=== PATIENT | male | born 1950 | race Caucasian/White ===

== ENCOUNTER 2017-12-09 14:28 | Observation (INO) | payer MEDICARE, BC ==
[2017-12-09] MEDS ORDERED: Sodium Chloride 0.9% 1,000 ML IV SCH (14:45)
[2017-12-09] MEDS ORDERED: cefTRIAXone 1 GM Vial IVPUSH SCH (15:00)
[2017-12-09] MEDS ORDERED: Iopamidol 612 MG/ML 75 ML Bottle IV ONE (16:00)
[2017-12-09] MEDS ORDERED: Sodium Chloride 0.9% 50 ML SDV FLUSH SCH (16:00)
[2017-12-09] MEDS ORDERED: Sodium Chloride 0.9% 50 ML IV SCH (16:30)
[2017-12-09] MEDS ORDERED: Diatrizoate Meglumine/Diatrizoate Sodium 37% 120 ML Bottle PO ONE (16:31)
[2017-12-09 16:34] VITALS: BP 147/89
== END 2017-12-09 18:09 ==
LOC: KA.MS 14:28
PROVIDERS: ADMIT Nurse Practitioner Family; ATTEND Nurse Practitioner Family
DX: K56.609 Unspecified intestinal obstruction, unspecified as to partial versus complete obstruction (principal); K51.90 Ulcerative colitis, unspecified, without complications; E87.1 Hypo-osmolality and hyponatremia; E86.0 Dehydration; Z79.899 Other long term (current) drug therapy; Z90.49 Acquired absence of other specified parts of digestive tract; Z88.1 Allergy status to other antibiotic agents; Z88.8 Allergy status to other drugs, medicaments and biological substances
CPT/HCPCS: 74177; 96374; G0378; G0379; J0696; J7030; J7050; Q9963; Q9967

== ENCOUNTER 2024-06-28 09:55 | Emergency (ER) | payer MEDICARE, BC ==
[2024-06-28] MEDS ORDERED: Sodium Chloride 0.9% 10 ML Syringe FLUSH PRN (10:15)
[2024-06-28 10:23] LABS: BASOPHILS ABSOLUTE AUTO 0.04 10^3/uL (0.00-0.10); BASOPHILS PERCENT AUTO 0.3 % (0.0-1.0); EOSINOPHILS ABSOLUTE AUTO 0.06 10^3/uL (0.10-0.30); EOSINOPHILS PERCENT AUTO 0.4 % (1.0-3.0); HEMATOCRIT 50.1 % (40.0-52.0); HEMOGLOBIN 16.9 g/dL (13.0-17.0); IMMATURE GRAN ABSOLUTE AUTO 0.03 10^3/uL (0.00-0.04); IMMATURE GRAN PERCENT AUTO 0.2 % (0.0-0.4); LYMPHOCYTES ABSOLUTE AUTO 0.22 10^3/uL (1.00-4.00); LYMPHOCYTES PERCENT AUTO 1.5 % (20.0-40.0); MEAN CORPUSCULAR HEMOGLOBIN 30.7 pg (27.0-31.0); MEAN CORPUSCULAR HGB CONC 33.7 g/dL (32.0-36.0); MEAN CORPUSCULAR VOLUME 90.9 fL (82.0-92.0); MEAN PLATELET VOLUME 10.6 fL (7.4-10.4); MONOCYTES ABSOLUTE AUTO 1.09 10^3/uL (0.10-0.80); MONOCYTES PERCENT AUTO 7.4 % (2.0-8.0); NEUTROPHILS ABSOLUTE AUTO 13.26 10^3/uL (2.50-7.00); NEUTROPHILS PERCENT AUTO 90.2 % (50.0-70.0); PLATELET COUNT,PLT 260 10^3/uL (150-400); RED BLOOD CELL COUNT 5.51 10^6/uL (4.50-6.00); RED CELL DISTRIBUTION WIDTH 15.4 % (11.5-14.5)
[2024-06-28] MEDS: Sodium Chloride 0.9% 1,000 ML IV ONE ×2 (10:35→13:10)
[2024-06-28 10:40] VITALS: BP 105/77; PULSE 111
[2024-06-28 11:09] LABS: ALBUMIN 3.97 g/dL (3.40-5.00); ANION GAP 18.5 mmol/L (5-15); BILIRUBIN TOTAL 0.8 mg/dL (0.2-1.0); CALCIUM 10.1 mg/dL (8.7-10.3); CARBON DIOXIDE,CO2 22.1 mmol/L (21.0-32.0); CREATININE 2.78 mg/dL (0.51-1.17); EST CRCL DRUG DOSING (CG) 26.75 mL/min; POTASSIUM,K 4.6 mmol/L (3.5-5.1); PROTEIN TOTAL,TP 8.3 g/dL (6.4-8.2)
[2024-06-28 11:52] LABS: APPEARANCE,URINE CLEAR (CLEAR); BILIRUBIN,URINE SMALL (NEGATIVE); COLOR,URINE DARK YELLOW (YELLOW); GLUCOSE,URINE NEGATIVE (NEGATIVE); KETONES,URINE TRACE mg/dL (NEGATIVE); LEUKOCYTE ESTERASE,URINE NEGATIVE (NEGATIVE); NITRITE,URINE NEGATIVE (NEGATIVE); OCCULT BLOOD,URINE NEGATIVE (NEGATIVE); PH,URINE 5.5 (5.0-9.0); PROTEIN,URINE 30 mg/dL (NEGATIVE); UROBILINOGEN,URINE 0.2 E.U./dL (0.2-1.0)
[2024-06-28 12:12] LABS: BACTERIA,URINE RARE /HPF (NONE TO FEW); EPITHELIAL CELLS,URINE RARE /LPF; MUCUS,URINE FEW /LPF (NEGATIVE); RBC,URINE 0-5 /HPF (0-5); WBC,URINE 0-5 /HPF (0-5)
[2024-06-28] MEDS: Sodium Chloride 0.9% 1,000 ML IV SCH ×2 (14:45→18:34)
[2024-06-28 16:51] LABS: BASOPHILS ABSOLUTE AUTO 0.03 10^3/uL (0.00-0.10); BASOPHILS PERCENT AUTO 0.3 % (0.0-1.0); EOSINOPHILS ABSOLUTE AUTO 0.02 10^3/uL (0.10-0.30); EOSINOPHILS PERCENT AUTO 0.2 % (1.0-3.0); HEMATOCRIT 42.4 % (40.0-52.0); HEMOGLOBIN 14.2 g/dL (13.0-17.0); IMMATURE GRAN ABSOLUTE AUTO 0.02 10^3/uL (0.00-0.04); IMMATURE GRAN PERCENT AUTO 0.2 % (0.0-0.4); LYMPHOCYTES ABSOLUTE AUTO 0.39 10^3/uL (1.00-4.00); LYMPHOCYTES PERCENT AUTO 3.4 % (20.0-40.0); MEAN CORPUSCULAR HEMOGLOBIN 30.3 pg (27.0-31.0); MEAN CORPUSCULAR HGB CONC 33.5 g/dL (32.0-36.0); MEAN CORPUSCULAR VOLUME 90.6 fL (82.0-92.0); MEAN PLATELET VOLUME 10.4 fL (7.4-10.4); MONOCYTES ABSOLUTE AUTO 0.83 10^3/uL (0.10-0.80); MONOCYTES PERCENT AUTO 7.2 % (2.0-8.0); NEUTROPHILS ABSOLUTE AUTO 10.17 10^3/uL (2.50-7.00); NEUTROPHILS PERCENT AUTO 88.7 % (50.0-70.0); PLATELET COUNT,PLT 198 10^3/uL (150-400); RED BLOOD CELL COUNT 4.68 10^6/uL (4.50-6.00); RED CELL DISTRIBUTION WIDTH 15.2 % (11.5-14.5); WHITE BLOOD CELL COUNT,WBC 11.46 10^3/uL (5.00-10.00)
[2024-06-28 17:08] LABS: ANION GAP 11.9 mmol/L (5-15); CALCIUM 8.4 mg/dL (8.7-10.3); CARBON DIOXIDE,CO2 25.9 mmol/L (21.0-32.0); CREATININE 2.7 mg/dL (0.51-1.17); EST CRCL DRUG DOSING (CG) 27.54 mL/min; POTASSIUM,K 4.8 mmol/L (3.5-5.1)
== END 2024-06-28 19:11 ==
LOC: KA.ED 09:55
DX: E86.0 Dehydration (principal); N17.9 Acute kidney failure, unspecified; N18.4 Chronic kidney disease, stage 4 (severe); K52.9 Noninfective gastroenteritis and colitis, unspecified; R00.0 Tachycardia, unspecified; R25.2 Cramp and spasm; Z88.1 Allergy status to other antibiotic agents; Z88.8 Allergy status to other drugs, medicaments and biological substances; Z79.899 Other long term (current) drug therapy; Z79.52 Long term (current) use of systemic steroids
CPT/HCPCS: 36415; 71045; 80048; 80053; 81001; 83735; 84100; 84484; 85025; 87040; 93005; 93010; 96360; 96361; 99284; 99285; J7030

== ENCOUNTER 2024-07-30 02:16 | Emergency (ER) | payer MEDICARE, BC ==
[2024-07-30] MEDS: Sodium Chloride 0.9% 1,000 ML IV ONE (02:39)
[2024-07-30] MEDS: Sodium Chloride 0.9% 1,000 ML ONE (02:43)
[2024-07-30] MEDS ORDERED: Sodium Chloride 0.9% 10 ML Syringe FLUSH PRN (02:43)
[2024-07-30 02:49] LABS: BASOPHILS ABSOLUTE AUTO 0.06 10^3/uL (0.00-0.10); BASOPHILS PERCENT AUTO 0.7 % (0.0-1.0); EOSINOPHILS ABSOLUTE AUTO 0.14 10^3/uL (0.10-0.30); EOSINOPHILS PERCENT AUTO 1.6 % (1.0-3.0); HEMOGLOBIN 15.5 g/dL (13.0-17.0); IMMATURE GRAN ABSOLUTE AUTO 0.01 10^3/uL (0.00-0.04); IMMATURE GRAN PERCENT AUTO 0.1 % (0.0-0.4); LYMPHOCYTES ABSOLUTE AUTO 1.34 10^3/uL (1.00-4.00); LYMPHOCYTES PERCENT AUTO 14.9 % (20.0-40.0); MEAN CORPUSCULAR HEMOGLOBIN 30.9 pg (27.0-31.0); MEAN CORPUSCULAR HGB CONC 35.2 g/dL (32.0-36.0); MEAN CORPUSCULAR VOLUME 87.6 fL (82.0-92.0); MONOCYTES ABSOLUTE AUTO 0.97 10^3/uL (0.10-0.80); MONOCYTES PERCENT AUTO 10.8 % (2.0-8.0); NEUTROPHILS PERCENT AUTO 71.9 % (50.0-70.0); PLATELET COUNT,PLT 238 10^3/uL (150-400); RED BLOOD CELL COUNT 5.02 10^6/uL (4.50-6.00); RED CELL DISTRIBUTION WIDTH 14.1 % (11.5-14.5); WHITE BLOOD CELL COUNT,WBC 9.02 10^3/uL (5.00-10.00)
[2024-07-30] MEDS ORDERED: Naloxone 0.4 MG/ML SDV IVPUSH PRN (03:06)
[2024-07-30] MEDS: Ondansetron 4 MG/2 ML SDV IVPUSH ONE (03:09)
[2024-07-30] MEDS: HYDROmorphone 1 MG/ML Syringe IVPUSH ONE (03:10)
[2024-07-30 03:16] LABS: ALBUMIN 3.82 g/dL (3.40-5.00); ANION GAP 16.3 mmol/L (5-15); BILIRUBIN TOTAL 0.7 mg/dL (0.2-1.0); CALCIUM 9.2 mg/dL (8.7-10.3); CARBON DIOXIDE,CO2 23.7 mmol/L (21.0-32.0); EST CRCL DRUG DOSING (CG) 36.62 mL/min; PROTEIN TOTAL,TP 7.7 g/dL (6.4-8.2)
[2024-07-30] MEDS: Sodium Chloride 0.9% 1,000 ML IV SCH (05:15)
[2024-07-30 06:02] VITALS: BP 114/76; PULSE 72
== END 2024-07-30 07:22 ==
LOC: KA.ED 02:16
DX: K56.609 Unspecified intestinal obstruction, unspecified as to partial versus complete obstruction (principal); N18.32 Chronic kidney disease, stage 3b; Z88.8 Allergy status to other drugs, medicaments and biological substances; Z88.1 Allergy status to other antibiotic agents
CPT/HCPCS: 74176; 80053; 83605; 85025; 96361; 96374; 96375; 99284; 99285-25; J1171; J2405; J7030

== ENCOUNTER 2024-08-21 11:02 | Emergency (ER) | payer MEDICARE, BC ==
[2024-08-21] MEDS: Potassium Chloride 20 MEQ Tab.ER PO ONE (12:07)
[2024-08-21] MEDS: Sodium Chloride 0.9% 1,000 ML IV ONE (12:07)
[2024-08-21 14:23] VITALS: BP 99/58; PULSE 73
== END 2024-08-21 14:15 | disposition home or self-care (01) ==
LOC: KA.ED 11:02
DX: E87.6 Hypokalemia (principal); Z88.8 Allergy status to other drugs, medicaments and biological substances; Z79.899 Other long term (current) drug therapy
CPT/HCPCS: 96360; 96361; 99284; A9270; J7030